=== PATIENT | female | born 1995 | race Caucasian/White ===

== ENCOUNTER 2022-04-18 20:10 | Emergency (ER) | payer OTHER ==
[2022-04-18 20:52] LABS: BILIRUBIN 1+ mg/dL (NEGATIVE); BLOOD NEGATIVE Ery/uL (NEGATIVE); CLARITY CLEAR (CLEAR); COLOR YELLOW (YELLOW); GLUCOSE (U) NORMAL (NORMAL); LEUKOCYTES NEGATIVE Leu/uL (NEGATIVE); NITRITE NEGATIVE (NEGATIVE); PROTEIN TRACE (LOW) mg/dL (NEGATIVE); SPECIFIC GRAVITY >=1.030 (1.001-1.030); pH 5.5 (5.0-9.0)
[2022-04-18 21:00] LABS: BACTERIA 1+; URINARY RBC RARE
[2022-04-18 21:01] LABS: CALCIUM OXALATE CRYSTALS MODERATE
[2022-04-18 21:21] LABS: CORONAVIRUS 2019 SARS-COV-2 NEGATIVE (NEGATIVE); INFLUENZA A NAA NEGATIVE (NEGATIVE)
[2022-04-18] MEDS ORDERED: DIFLUCAN 100MG100 MG PO (23:06)
[2022-04-18] MEDS ORDERED: BACTRIM DS TAB1 EACH PO (23:06)
== END 2022-04-18 23:18 | disposition home or self-care (01) ==
LOC: FER 20:10
PROVIDERS: Physician Assistant
DX: N39.0 Urinary tract infection, site not specified (principal); Z20.822 Contact with and (suspected) exposure to COVID-19
CPT/HCPCS: 81001; 99283; Q0162; U0002